=== PATIENT | female | born 1970 | race Caucasian/White ===

== ENCOUNTER 2016-11-21 15:22 | Emergency (ER) | payer OTHER ==
[2016-11-21 17:11] LABS: BASOPHIL 0.3 % (0-2); EOSINOPHIL 3.1 % (0-5); HCT 39.5 % (37.0-47.0); HGB 13.2 g/dl (12.5-16.0); MCHC 33.4 g/dL (32.0-36.0); MCV 83.9 fL (78.0-100.0); MONOCYTE 6.9 % (0-12); MPV 10.5 fL (6.0-9.5); NEUTROPHIL 69.7 % (41-80); PLT 324 K/uL (150-400); RBC 4.71 M/uL (4.20-5.40); RDW 15.6 % (11.5-14.0); WBC 16.2 K/uL (4.0-10.5)
[2016-11-21 17:21] LABS: ALBUMIN 4.7 g/dL (3.5-5.0); BILIRUBIN - TOTAL 0.2 mg/dL (0.1-1.0); CREATININE 0.7 mg/dL (0.5-1.0); GLOBULIN (CALCULATION) 3.1 g/dL (2.2-4.2); POTASSIUM 3.6 mmol/L (3.5-5.1); TOTAL PROTEIN 7.8 g/dL (6.4-8.3)
[2016-11-21 17:40] LABS: LACTIC ACID 0.8 mmol/L (0.5-2.2)
[2016-11-21 19:24] LABS: BILIRUBIN NEGATIVE (NEGATIVE); BLOOD 1+ Ery/uL (NEGATIVE); CLARITY HAZY (CLEAR); COLOR COLORLESS (YELLOW); GLUCOSE (U) NORMAL (NORMAL); KETONE (U) NEGATIVE (NEGATIVE); LEUKOCYTES NEGATIVE Leu/uL (NEGATIVE); NITRITE NEGATIVE (NEGATIVE); PROTEIN NEGATIVE (NEGATIVE); UROBILINOGEN 0.2 mg/dL (0.2-1.0); pH 6.5 (5.0-9.0)
[2016-11-21 19:25] LABS: URINARY RBC RARE
[2016-11-21 19:26] LABS: BACTERIA TRACE; MUCOUS MODERATE
== END 2016-11-21 19:32 | disposition home or self-care (01) ==
LOC: FER 15:22
PROVIDERS: Emergency Medicine
DX: J40 Bronchitis, not specified as acute or chronic (principal); R19.7 Diarrhea, unspecified; F17.200 Nicotine dependence, unspecified, uncomplicated; Z88.2 Allergy status to sulfonamides
CPT/HCPCS: 36415; 71020; 80053; 81001; 83605; 85025; 87804; 87899; 94640; 94664; J1170; J2270; J2930

== ENCOUNTER 2017-02-25 00:02 | Emergency (ER) | payer OTHER ==
[2017-02-25 03:22] LABS: BASOPHIL 0.4 % (0-2); HCT 36.5 % (37.0-47.0); HGB 12.3 g/dl (12.5-16.0); LYMPHOCYTE 28.3 % (15-48); MCH 27.7 pg (25.0-31.0); MCHC 33.7 g/dL (32.0-36.0); MCV 82.2 fL (78.0-100.0); MONOCYTE 9.6 % (0-12); MPV 10.6 fL (6.0-9.5); NEUTROPHIL 59.7 % (41-80); PLT 339 K/uL (150-400); RBC 4.44 M/uL (4.20-5.40); RDW 15.6 % (11.5-14.0); WBC 11.2 K/uL (4.0-10.5)
[2017-02-25 03:35] LABS: CREATININE 0.6 mg/dL (0.5-1.0); POTASSIUM 3.1 mmol/L (3.5-5.1)
[2017-02-25 04:21] LABS: BILIRUBIN NEGATIVE (NEGATIVE); BLOOD 2+ Ery/uL (NEGATIVE); CLARITY CLEAR (CLEAR); COLOR YELLOW (YELLOW); GLUCOSE (U) NORMAL (NORMAL); KETONE (U) NEGATIVE (NEGATIVE); LEUKOCYTES TRACE Leu/uL (NEGATIVE); NITRITE NEGATIVE (NEGATIVE); PROTEIN TRACE (LOW) mg/dL (NEGATIVE); SPECIFIC GRAVITY 1.025 (1.001-1.030); UROBILINOGEN 0.2 mg/dL (0.2-1.0)
[2017-02-25 04:28] LABS: AMORPHOUS URATES CRYSTALS MODERATE; BACTERIA 1+; MUCOUS MODERATE
== END 2017-02-25 05:02 | disposition home or self-care (01) ==
LOC: FER 00:02
PROVIDERS: Emergency Medicine
DX: K51.90 Ulcerative colitis, unspecified, without complications (principal); E87.6 Hypokalemia; R31.9 Hematuria, unspecified; F17.210 Nicotine dependence, cigarettes, uncomplicated; Z88.2 Allergy status to sulfonamides
CPT/HCPCS: 36415; 80048; 81001; 85025; J1885; J2270; J2405; J2930